=== PATIENT | female | born 1945 | race Caucasian/White ===

== ENCOUNTER 2016-09-21 07:38 | Observation (INO) | payer MEDICARE, BC ==
[~2016-09-21] VITALS: Ht 157.5 cm; Wt 97.9 kg
[~2016-09-21 07:38] MED LIST: ANTIVERT 25MG25 MG PO; ASPIRIN E.C. 8181 MG PO; CIPRO 500MG TA500 MG PO; CLARITIN 1010 MG/TAB PO; INDERAL80 MG PO; LIORESAL 1010 MG/TAB PO; MOBIC15 MG PO; NEURONTIN600 MG/TAB PO; NITROSTAT0.4 MG/TAB SL; NORCO 325 MG-101 TAB PO; OMEGA-3 FISH1200 MG PO; PLAVIX 75MG TAB75 MG PO; SOMA 350MG350 MG/TAB PO; UNABLE; ZANTAC 150150 MG; ZOCOR 40MG40 MG PO
[2016-09-21] MEDS ORDERED: INDERAL40 MG PO (08:07)
[2016-09-21] MEDS ORDERED: ZOCOR 80MG80 MG PO (08:08)
[2016-09-21 08:09] LABS: HEMATOCRIT 39.1 % (37.0-47.0); HEMOGLOBIN 12.2 g/dl (12.5-16.0); MEAN CELL VOLUME 92 fl (80.0-100.0); MEAN CORPUSCULAR HEMOGLOBIN 29 pg (27.0-31.0); MEAN CORPUSCULAR HGB CONC 31 g/dl (33.0-37.0); PLATELET COUNT 101 K/mm3 (130-400); RED BLOOD COUNT 4.26 M/mm3 (4.10-5.30); REDCELL DISTRIBUTION WIDTH-CV 14.3 % (11.5-14.5); WHITE BLOOD COUNT 9.5 K/mm3 (4.8-10.8)
[2016-09-21] MEDS ORDERED: NORCO 325 MG-101 TAB PO (08:09)
[2016-09-21 08:10] LABS: ADD PATHOLOGY DIFF REVIEW NO
[2016-09-21 08:26] LABS: ADJUSTED CALCIUM 9.4 mg/dL (8.4-10.2); ALANINE AMINOTRANSFERASE 19 U/L (9-52); ALBUMIN 3.9 gm/dL (3.5-5.0); ALKALINE PHOSPHATASE 65 U/L (50-136); ANION GAP 13 mmol/L (7-16); BILIRUBIN,TOTAL 0.8 mg/dL (0.0-1.0); BLOOD UREA NITROGEN 15 mg/dL (7-17); C-REACTIVE PROTEIN 0.7 mg/dL (0.0-0.9); CALCIUM 9.3 mg/dL (8.4-10.2); CARBON DIOXIDE 26 mmol/L (22-30); CHLORIDE 103 mmol/L (98-107); CREATININE, serum 0.79 mg/dL (0.52-1.25); GLUCOSE 121 mg/dL (74-106); POTASSIUM 3.9 mmol/L (3.4-5.0); SODIUM 142 mmol/L (137-145); TOTAL PROTEIN 6.9 gm/dL (6.4-8.2)
[2016-09-21 08:55] LABS: PH 5 (5-8); SQUAMOUS EPITHELIAL None Seen /hpf; URINE APPEARANCE Clear; URINE BACTERIA None Seen /hpf; URINE BILIRUBIN Negative (NEGATIVE); URINE BLOOD 1+ (NEGATIVE); URINE COLOR Yellow; URINE GLUCOSE Negative (NEGATIVE); URINE KETONE Negative (NEGATIVE); URINE RBC 0-2 /hpf; URINE UROBILINOGEN Negative (NEGATIVE); URINE WBC 0-2 /hpf
[2016-09-21 08:56] LABS: TROPONIN-I < 0.012 ng/mL (0.000-0.034)
[2016-09-21 09:21] LABS: EOSINOPHIL 10 % (0-4); NEUTROPHILS 10 % (42.0-75.2); TOTAL CELLS COUNTED 100
[2016-09-21 09:22] LABS: PLATELET ESTIMATE DECREASED (NORMAL)
[2016-09-21 09:38] VITALS: BP 171/85; PULSE 60
[2016-09-21 11:55] VITALS: BP 150/62; PULSE 60; TEMP 97.6
[2016-09-21 15:33] VITALS: BP 172/92; PULSE 72; TEMP 98.5
[2016-09-21 20:50] VITALS: BP 149/67; PULSE 65; TEMP 97.7
[2016-09-22 01:21] VITALS: BP 135/75; PULSE 66; TEMP 97.3
[2016-09-22 05:14] VITALS: BP 131/59; PULSE 59; TEMP 97.8
[2016-09-22 07:46] VITALS: BP 157/54; PULSE 59; TEMP 97.6
[2016-09-22 12:24] VITALS: BP 112/68; PULSE 55; TEMP 97.7
[2016-09-22 15:25] VITALS: BP 150/60; PULSE 70; TEMP 97.8
[2016-09-22 20:29] VITALS: BP 165/75; PULSE 67; TEMP 98.2
[2016-09-23 00:20] VITALS: BP 156/65; PULSE 63; TEMP 98
[2016-09-23 03:33] VITALS: BP 155/80; PULSE 91; TEMP 98.5
[2016-09-23 08:45] VITALS: BP 163/73; PULSE 63; TEMP 97.8
[2016-09-23 13:34] VITALS: BP 151/75; PULSE 66; TEMP 97.5
[2016-09-23] MEDS ORDERED: AMOXICILLIN 8751 TAB PO (13:45)
[2016-09-23] MEDS ORDERED: INDERAL40 MG PO (13:46)
[2016-09-23] MEDS ORDERED: VANCOCIN HCL1 GM IV (13:47)
[2016-09-25] MEDS ORDERED: INDERAL80 MG PO (07:04)
== END 2016-09-23 19:01 | disposition home or self-care (01) ==
LOC: COL.ER 07:38 → MEDICAL 09:57
PROVIDERS: Emergency Medicine
DX: R55 Syncope and collapse (principal); J32.9 Chronic sinusitis, unspecified; R54 Age-related physical debility; Z96.89 Presence of other specified functional implants; C92.10 Chronic myeloid leukemia, BCR/ABL-positive, not having achieved remission
CPT/HCPCS: G0378; G8978-GP; G8979-GP; G8980-GP; J1644; J2060; J2405; J3370; J7030; J7050

== ENCOUNTER 2016-10-15 08:00 | Outpatient (RCR) | payer MEDICARE, BC ==
[2016-08-29 15:00] VITALS: BP 118/68; PULSE 58; TEMP 96.6
[2016-08-29 15:01] LABS: CALCIUM 9.4 mg/dL (8.4-10.2); CREATININE, serum 0.76 mg/dL (0.52-1.25); POTASSIUM 4.2 mmol/L (3.4-5.0)
[2016-08-30 07:14] VITALS: BP 112/53; PULSE 56; TEMP 98.3
[2016-08-30 18:14] VITALS: BP 123/75; PULSE 60; TEMP 97.4
[2016-08-30 19:14] VITALS: BP 117/75; PULSE 63; TEMP 97.6
[2016-08-31 06:30] VITALS: BP 117/91; PULSE 58; TEMP 97.9
[2016-08-31 18:04] VITALS: BP 129/35; PULSE 61; TEMP 98.1
[2016-09-02 07:33] VITALS: BP 116/55; PULSE 52; TEMP 97.4
[2016-09-03 07:03] VITALS: BP 134/68; PULSE 53; TEMP 97.4
[2016-09-03 17:53] VITALS: BP 142/64; PULSE 55; TEMP 97.7
[2016-09-04 07:09] VITALS: BP 103/59; PULSE 56; TEMP 97.8
[2016-09-04 18:04] VITALS: BP 142/51; PULSE 60; TEMP 97.6
[2016-09-04 19:37] VITALS: BP 141/53; PULSE 54
[2016-09-05 07:07] VITALS: BP 124/60; PULSE 55; TEMP 97.5
[2016-09-06 06:58] VITALS: BP 140/67; PULSE 53; TEMP 97.9
[2016-09-06 17:56] VITALS: BP 142/54; PULSE 57; TEMP 97.6
[2016-09-07 07:37] VITALS: BP 132/56; PULSE 53; TEMP 97.9
[2016-09-07 17:59] VITALS: BP 144/56; PULSE 600; TEMP 97.8
[2016-09-08 06:57] VITALS: BP 142/62; PULSE 53; TEMP 97.5
[2016-09-09 07:14] VITALS: BP 113/51; PULSE 60; TEMP 97.8
[2016-09-10 07:19] VITALS: BP 134/73; PULSE 60; TEMP 97.9
[2016-09-10 18:24] VITALS: BP 143/65; PULSE 57; TEMP 98.1
[2016-09-11 07:48] VITALS: BP 141/59; PULSE 60; TEMP 97.3
[2016-09-11 18:18] VITALS: BP 141/58; PULSE 57; TEMP 97.8
[2016-09-12 07:00] VITALS: BP 129/59; PULSE 75; TEMP 97.2
[2016-09-12 07:04] VITALS: BP 129/59; PULSE 75; TEMP 97.2
[2016-09-13 06:52] VITALS: BP 136/58; PULSE 59; TEMP 97.8
[2016-09-13 18:00] VITALS: BP 123/55; PULSE 59; TEMP 97.4
[2016-09-14 06:53] VITALS: BP 141/62; PULSE 58; TEMP 97.4
[2016-09-14 18:43] VITALS: BP 149/60; PULSE 57; TEMP 98.5
[2016-09-15 08:29] VITALS: BP 128/57; PULSE 57; TEMP 97.5
[2016-09-16 08:11] VITALS: BP 137/55; PULSE 55; TEMP 97.3
[2016-09-17 06:54] VITALS: BP 118/56; PULSE 56; TEMP 97.4
[2016-09-17 17:58] VITALS: BP 109/95; PULSE 58; TEMP 97.5
[2016-09-18 06:51] VITALS: BP 116/101; PULSE 55; TEMP 97.5
[2016-09-18 17:57] VITALS: BP 130/74; PULSE 74; TEMP 97.4
[2016-09-19 07:35] VITALS: BP 118/55; PULSE 56; TEMP 97.6
[2016-09-20 06:48] VITALS: BP 127/60; PULSE 57; TEMP 97.9
[2016-09-20 19:07] VITALS: BP 127/60; PULSE 57; TEMP 98
[2016-09-24 06:48] VITALS: BP 150/58; PULSE 57; TEMP 97.6
[2016-09-25 07:07] VITALS: BP 126/54; PULSE 54; TEMP 97.7
[2016-09-25 18:23] VITALS: BP 126/63; PULSE 57; TEMP 98
[2016-09-26 07:11] VITALS: BP 134/61; PULSE 56; TEMP 98
[2016-09-26 18:02] VITALS: BP 174/84; PULSE 96; TEMP 97.2
[2016-09-27 07:03] VITALS: BP 130/52; PULSE 51; TEMP 97.4
[2016-09-27 17:58] VITALS: BP 137/67; PULSE 61; TEMP 98
[2016-09-28 07:06] VITALS: BP 109/78; PULSE 56; TEMP 97.2
[2016-09-29 07:09] VITALS: BP 154/62; PULSE 55; TEMP 98.4
[2016-09-30 06:56] VITALS: BP 144/55; PULSE 58; TEMP 97.2
[2016-10-01 06:59] VITALS: BP 116/54; PULSE 60; TEMP 97.3
[2016-10-01 18:01] VITALS: BP 156/58; PULSE 64; TEMP 97.7
[2016-10-02 07:06] VITALS: BP 110/51; PULSE 54; TEMP 97.5
[2016-10-03 07:00] VITALS: BP 119/64; PULSE 57; TEMP 97.1
[2016-10-04 07:16] VITALS: BP 114/61; PULSE 58; TEMP 97.4
[2016-10-04 17:47] VITALS: BP 132/59; PULSE 64; TEMP 97.2
[2016-10-05 07:06] VITALS: BP 128/53; PULSE 56; TEMP 97.2
[2016-10-07 07:26] VITALS: BP 118/70; PULSE 57; TEMP 97.6
[2016-10-08 07:07] VITALS: BP 136/55; PULSE 56; TEMP 98.2
[2016-10-08 17:56] VITALS: BP 144/68; PULSE 62; TEMP 97.3
[2016-10-09 07:11] VITALS: BP 133/63; PULSE 56; TEMP 97.7
[2016-10-09 18:16] VITALS: BP 136/56; PULSE 56; TEMP 98.1
[2016-10-10 07:33] VITALS: BP 134/70; PULSE 64; TEMP 97.2
[2016-10-11 07:49] VITALS: BP 134/56; PULSE 56; TEMP 98.4
[~2016-10-15] VITALS: Ht 152.4 cm; Wt 93.9 kg
[~2016-10-15 08:00] MED LIST changes: +AMOXICILLIN 8751 TAB PO; +INDERAL40 MG PO; +VANCOCIN HCL1 GM IV; +ZOCOR 80MG80 MG PO
[2016-10-15 08:53] VITALS: BP 117/50; PULSE 56; TEMP 97.2
== END 2016-10-15 09:12 | disposition home or self-care (01) ==
LOC: EUO 08:00
PROVIDERS: Anesthesiology Pain Medicine
DX: Z45.2 Encounter for adjustment and management of vascular access device (principal); Z79.2 Long term (current) use of antibiotics
CPT/HCPCS: C1751; J1644; J3370; J7040; J7050

== ENCOUNTER → 2017-01-02 | Outpatient (CLI) | payer MEDICARE, BC | LOC: MC.RAD 10:18 | DX: Z12.31 Encounter for screening mammogram for malignant neoplasm of breast (principal) ==

== ENCOUNTER 2017-04-05 20:46 | Emergency (ER) | payer MEDICARE, BC ==
[~2017-04-05] VITALS: Ht 152.4 cm; Wt 90.0 kg
[2017-04-05 20:53] VITALS: TEMP 96.9
[2017-04-05] MEDS ORDERED: CEPHALEXIN500 M1 PO (21:18)
[2017-04-05 21:34] VITALS: BP 144/75; PULSE 68
== END 2017-04-05 21:35 | disposition home or self-care (01) ==
LOC: COL.ER 20:46
DX: T81.31XA Disruption of external operation (surgical) wound, not elsewhere classified, initial encounter (principal); Z79.82 Long term (current) use of aspirin; Z85.6 Personal history of leukemia; Z96.89 Presence of other specified functional implants

== ENCOUNTER 2017-06-04 11:00 | Outpatient (RCR) | payer MEDICARE, BC ==
[2017-05-15 11:22] VITALS: BP 101/48; PULSE 56; TEMP 97.3
[2017-05-16 11:33] VITALS: BP 103/62; PULSE 58; TEMP 97.6
[2017-05-16 11:33] LABS: CREATININE, serum 0.87 mg/dL (0.52-1.25)
[2017-05-16 11:38] LABS: VANCOMYCIN TROUGH 12.94 ug/mL (7.00-20.00)
[2017-05-17 11:16] VITALS: BP 121/62; PULSE 55; TEMP 97.9
[2017-05-18 10:06] VITALS: BP 84/44; PULSE 60; TEMP 97.7
[2017-05-19 10:00] VITALS: BP 128/60; PULSE 57; TEMP 97.7
[2017-05-20 12:00] VITALS: BP 105/61; PULSE 55; TEMP 98
[2017-05-21 10:57] VITALS: BP 123/50; PULSE 57; TEMP 97.4
[2017-05-22 10:56] VITALS: BP 108/62; PULSE 55; TEMP 97.3
[2017-05-23 10:59] VITALS: BP 117/52; PULSE 55
[2017-05-24 11:26] VITALS: BP 116/63; PULSE 61; TEMP 97.6
[2017-05-25 09:59] VITALS: BP 128/62; PULSE 87
[2017-05-26 09:59] VITALS: BP 136/66; PULSE 56; TEMP 97.1
[2017-05-27 10:59] VITALS: BP 136/66; PULSE 55; TEMP 97.5
[2017-05-28 12:12] VITALS: BP 121/56; PULSE 50; TEMP 97.8
[2017-05-29 11:23] VITALS: BP 127/53; PULSE 53; TEMP 97.5
[2017-05-30 09:06] VITALS: BP 141/50; PULSE 56; TEMP 97.7
[2017-05-31 09:03] VITALS: BP 135/57; PULSE 53; TEMP 97.4
[2017-06-01 09:03] VITALS: BP 151/67; PULSE 57; TEMP 97.3
[2017-06-03 11:13] VITALS: BP 133/58; PULSE 88; TEMP 97.8
[~2017-06-04] VITALS: Ht 152.4 cm; Wt 92.0 kg
[2017-06-04 10:59] VITALS: BP 136/52; PULSE 54; TEMP 97.3
[~2017-06-04 11:00] MED LIST changes: +BACTRIM DS 8001 TAB PO; +CEPHALEXIN500 M1 PO; +ROXICODONE 55 MG/TAB PO; +VANCOMYCIN HYD750 MG IV
== END 2017-06-04 12:20 | disposition home or self-care (01) ==
LOC: EUO 11:00
PROVIDERS: Anesthesiology Pain Medicine
DX: T85.79XA Infection and inflammatory reaction due to other internal prosthetic devices, implants and grafts, initial encounter (principal); Z45.2 Encounter for adjustment and management of vascular access device; Z48.00 Encounter for change or removal of nonsurgical wound dressing
CPT/HCPCS: J1644; J3370; J7050

== ENCOUNTER → 2018-01-21 | Outpatient (CLI) | payer MEDICARE, BC | LOC: MC.RAD 08:52 | DX: Z12.31 Encounter for screening mammogram for malignant neoplasm of breast (principal) ==

== ENCOUNTER → 2019-02-03 | Outpatient (CLI) | payer MEDICARE, BC | LOC: MC.RAD 09:38 | DX: Z12.31 Encounter for screening mammogram for malignant neoplasm of breast (principal) ==

== ENCOUNTER → 2020-02-05 | Outpatient (CLI) | payer MEDICARE, BC | LOC: MC.RAD 09:55 | DX: Z12.31 Encounter for screening mammogram for malignant neoplasm of breast (principal) ==

== ENCOUNTER → 2021-02-09 | Outpatient (CLI) | payer MEDICARE, BC ==
[~2021-02-09] MED LIST changes: +FIORICET 325 MG1 TA1 PO; +MASON NATURAL1200 MG PO; +OMNICEF 300MG300 MG PO; +PEPCID 20MG TAB20 MG PO; +PERCOCET 325 MG1 TA2 PO; +ULTRAM 50MG TAB50 MG PO; +ZOFRAN ODT4 MG PO
== END ==
LOC: MC.RAD 10:16
DX: Z12.31 Encounter for screening mammogram for malignant neoplasm of breast (principal)

== ENCOUNTER 2021-05-14 11:59 | Emergency (ER) | payer MEDICARE, BC ==
[~2021-05-14] VITALS: Ht 152.4 cm; Wt 85.9 kg
[~2021-05-14 11:59] MED LIST changes: -FIORICET 325 MG1 TA1 PO; -MASON NATURAL1200 MG PO; -OMNICEF 300MG300 MG PO; -PEPCID 20MG TAB20 MG PO; -PERCOCET 325 MG1 TA2 PO; -ULTRAM 50MG TAB50 MG PO; -ZOFRAN ODT4 MG PO
[2021-05-14 12:23] VITALS: TEMP 98
[2021-05-14] MEDS ORDERED: FIORICET 325 MG1 TA1 PO (14:49)
[2021-05-14 15:13] VITALS: BP 153/79; PULSE 57
[2021-05-15] MEDS ORDERED: ULTRAM 50MG TAB50 MG PO (17:30)
[2021-05-15] MEDS ORDERED: PEPCID 20MG TAB20 MG PO (17:31)
[2021-05-15] MEDS ORDERED: MASON NATURAL1200 MG PO (17:33)
== END 2021-05-14 15:13 | disposition home or self-care (01) ==
LOC: COL.ER 11:59
DX: G43.909 Migraine, unspecified, not intractable, without status migrainosus (principal); I25.2 Old myocardial infarction; Z79.891 Long term (current) use of opiate analgesic
CPT/HCPCS: J0780; J1200

== ENCOUNTER 2021-05-15 14:08 | Observation (INO) | payer MEDICARE, BC ==
[~2021-05-15] VITALS: Ht 152.4 cm; Wt 85.5 kg
[~2021-05-15 14:08] MED LIST changes: +FIORICET 325 MG1 TA1 PO
[2021-05-15 14:45] LABS: HEMATOCRIT 43.2 % (37.0-47.0); HEMOGLOBIN 13.8 g/dl (12.5-16.0); MEAN CELL VOLUME 89 fl (80.0-100.0); MEAN CORPUSCULAR HEMOGLOBIN 29 pg (27.0-31.0); MEAN CORPUSCULAR HGB CONC 32 g/dl (33.0-37.0); PLATELET COUNT 171 K/mm3 (130-400); RED BLOOD COUNT 4.83 M/mm3 (4.10-5.30)
[2021-05-15 15:03] LABS: ALBUMIN 3.6 gm/dL (3.4-4.8); BILIRUBIN,TOTAL 0.6 mg/dL (0.2-1.2); CALCIUM 9.2 mg/dL (8.4-10.2); CREATININE, serum 1.05 mg/dL (0.57-1.11); POTASSIUM 3.1 mmol/L (3.5-4.5); TOTAL PROTEIN 6.9 gm/dL (6.2-8.1)
[2021-05-15 15:16] LABS: BAND 1 % (0-10); LYMPHOCYTE 85 % (20.0-51.0); NEUTROPHILS 13 % (42.0-75.2); PLATELET ESTIMATE NORMAL (NORMAL)
[2021-05-15 15:23] LABS: TROPONIN-I 0.018 ng/mL (0.00-0.033); TSH w REFLEX 0.515 uIU/mL (0.350-4.940)
[2021-05-15 15:34] LABS: MUCOUS Present /lpf; PH 6 (5-8); SQUAMOUS EPITHELIAL 0-2 /hpf; URINE APPEARANCE Hazy; URINE BACTERIA None Seen /hpf; URINE BILIRUBIN Negative (NEGATIVE); URINE BLOOD 1+ (NEGATIVE); URINE COLOR Yellow; URINE GLUCOSE Negative (NEGATIVE); URINE KETONE Negative (NEGATIVE); URINE LEUKOCYTE ESTERASE 2+ (NEGATIVE); URINE NITRATE Negative (NEGATIVE); URINE PROTEIN(semi-quant) 2+ (NEGATIVE); URINE UROBILINOGEN >=4.0 mg/dL (NEGATIVE)
[2021-05-15 15:46] LABS: COLLECTION METHOD CLEAN CATCH
[2021-05-15] MEDS ORDERED: ULTRAM 50MG TAB50 MG PO (17:30)
[2021-05-15] MEDS ORDERED: PEPCID 20MG TAB20 MG PO (17:31)
[2021-05-15] MEDS ORDERED: MASON NATURAL1200 MG PO (17:33)
--- NOTE | 2021-05-15 19:45 | NUR ---
Arrived to room 324 via wheelchair from ED. Oriented to room and policy. Admission assessment complete. VS stable. Plan of care discussed for this to include meds/calling for questions/concerns. Verbalizes understanding/denies needs. Call light in reach/bed alarm on. Will monitor.
[2021-05-15 20:18] VITALS: BP 137/89; PULSE 99; TEMP 98.5
[2021-05-15 23:21] VITALS: BP 139/79; PULSE 96; TEMP 98.4
[2021-05-16 03:38] VITALS: BP 128/74; PULSE 89; TEMP 97.7
--- NOTE | 2021-05-16 03:53 | NUR ---
Patient removed INT to right hand-cath intact. Restarted in right wrist-22g x1 attempt.
--- NOTE | 2021-05-16 05:56 | NUR ---
Less confused this morning. Assisted up to chair at this time. C/O back pain-rating pain 8/10 on pain scale-described as constant ache with intermittent sharpness. Tylenol/tramadol given per dr order. Call light in reach/chair alarm on. Will monitor.
[2021-05-16 06:46] LABS: HEMATOCRIT 45.1 % (37.0-47.0); HEMOGLOBIN 14.3 g/dl (12.5-16.0); MEAN CELL VOLUME 90 fl (80.0-100.0); MEAN CORPUSCULAR HEMOGLOBIN 29 pg (27.0-31.0); MEAN CORPUSCULAR HGB CONC 32 g/dl (33.0-37.0); MEAN PLATELET VOLUME 10.7 fl (7.4-10.4); PLATELET COUNT 191 K/mm3 (130-400); RED BLOOD COUNT 5.02 M/mm3 (4.10-5.30); REDCELL DISTRIBUTION WIDTH-CV 15.1 % (11.5-14.5)
[2021-05-16 07:05] LABS: CALCIUM 9.6 mg/dL (8.4-10.2); CHOLESTEROL RISK RATIO 3.7; CREATININE, serum 0.91 mg/dL (0.57-1.11); POTASSIUM 3.2 mmol/L (3.5-4.5)
[2021-05-16 07:58] LABS: PLATELET ESTIMATE NORMAL (NORMAL)
[2021-05-16 07:59] LABS: BAND 3 % (0-10); LYMPHOCYTE 81 % (20.0-51.0); NEUTROPHILS 15 % (42.0-75.2)
[2021-05-16 08:03] VITALS: BP 133/58; PULSE 72; TEMP 97.9
--- NOTE | 2021-05-16 08:38 | NUR ---
PT SITTING IN RECLINER EATING BREAKFAST. OT IN TO WORK WITH PT. PT IS ALERT AND MOSTLY ORIENTED. SOME INTERMITTANT CONFUSION WITH ADLS. PT PUTS FORK ON TRAY AND THEN FORGETS SHE HAS A FORK. PT WAS TRYING TO DRINK OATMEAL. REMINDED THAT SHE HAS A SPOON AND IT WOULD BE EASIER TO EAT WITH. PT THEN PICKED UP SPOON AND CONTINUED. PT SPILLED COFFEE. EYE HAND COORDINATION QUESTIONABLE. PT TOOK ALL AM MEDS AT ONCE NO SWALLOWING ISSUES NOTED. PT TO MRI AT THIS TIME.
--- NOTE | 2021-05-16 09:35 | NUR ---
BOBBY met with the patient to discuss discharge plan. The patient lives in [place] with her , Masood (ph#[phone]). She reports independence with ADLs and has a cane, walker, and wheelchair. The patient's PCP is Dr. Dinh Valentino and she receives her medications from [facility] She reports no difficulties obtaining her meds. The patient does not have a DPOA-HC in EMR, but she states that she does have one completed and that she designated her son, Billy (ph#[phone]). She states that [facility] should have a copy of the DPOA-HC. BOBBY contacted [facility] to request a copy. The receptionist clerk reports that she will leave a message for their social secretary to contact this SW back. The patient plans to return home with her upon discharge. SW disussed home health services and it's benefits. The patient reports that she is really considering home health, but would like to talk to her first about it. PT/OT have been ordered. BOBBY to continue to follow. *Discharge plan: home with . Awaiting therapy's recs*
[2021-05-16 11:08] VITALS: BP 130/82; PULSE 65; TEMP 97.6
--- NOTE | 2021-05-16 12:18 | NUR ---
First visit from the polls or surveys interviewer. No needs right now.
--- NOTE | 2021-05-16 14:02 | NUR ---
SW received the patient's DPOA-HC, via fax. SW placed the document in the patient's chart. The patient's DPOA-HC is her . The alternate is her son, Billy.
--- NOTE | 2021-05-16 15:13 | NUR ---
PT recommends home with family supervision and home health. BOBBY attempted to contact the patient's , Masood, to review discharge plan. His phone goes straight to voicemail. SW left him a voicemail. BOBBY also attempted to contact her son, Billy. SW left him a voicemail. BOBBY met with the patient to discussed therapy's recommendation. The patient reports that her is normally always with her. She is open to home health. BOBBY provided the patient with Medicare.[place]'s list of home health agencies that serve [place]. The patient chose [facility]. BOBBY contacted and faxed a referral to Audrey at [facility]. Audrey reports that they are able to accept the patient for services. *Discharge plan: home with and home health*
--- NOTE | 2021-05-16 15:19 | NUR ---
DR.POELL TILLEY NOTIFIED THIS AM OF WBC RESULT.
[2021-05-16 15:28] VITALS: BP 152/74; PULSE 72; TEMP 97
--- NOTE | 2021-05-16 16:08 | NUR ---
The patient's son, Billy, returned BOBBY's phone call. BOBBY provided him with an update. Billy confirms that the patient's is with the patient at all times. He is in agreement to the discharge plan of home with and [facility].
[2021-05-16 19:13] VITALS: BP 149/78; PULSE 78; TEMP 98.1
--- NOTE | 2021-05-16 20:10 | NUR ---
Report received, assumed care for night club manager. Assessment complete. Partially oriented-intermittent confusion and forgetfullness. Answers most questions appropriately-otherwise neuros WNL. Denies pain/nausea/shortness of breath. VS remain stable. Plan of care discussed for this shift to include meds/calling for questions/concerns. Verbalizes understanding. Call light in reach. WIll monitor.
--- NOTE | 2021-05-16 21:00 | NUR ---
Called with c/o pain to back-rating pain 10/10 on pain scale-described as constant ache with intermittent sharpness. Tramadol given per dr order.
[2021-05-16 22:07] VITALS: BP 152/94; PULSE 65; TEMP 98.3
--- NOTE | 2021-05-17 01:05 | NUR ---
Patient up out of bed setting off alarm. Very confused-th[place]. Re-oriented several times-can answer questions appropriately but gets confused again. SItting up in chair watching TV. Call light in reach/bed alarm on. Will monitor.
[2021-05-17 03:04] VITALS: BP 137/81; PULSE 80; TEMP 98.3
--- NOTE | 2021-05-17 06:24 | NUR ---
Rested better later this shift. Received tramadol/tylenol for back and head ache. Denied nausea/shortness of breath. VS remained stable. BP slightly elevated but below medications parameters. Still remains forgetful/confused but easy to reorient/follows commands. Denies current needs. Call light in reach/bed alarm on. Will monitor.
[2021-05-17 07:30] VITALS: BP 132/72; PULSE 79; TEMP 97.4
[2021-05-17 08:36] LABS: CALCIUM 9.8 mg/dL (8.4-10.2); CREATININE, serum 0.92 mg/dL (0.57-1.11); POTASSIUM 3.8 mmol/L (3.5-4.5)
[2021-05-17] MEDS ORDERED: OMNICEF 300MG300 MG PO (09:08)
--- NOTE | 2021-05-17 09:15 | NUR ---
BOBBY attended clinical rounds. The patient's son, Billy, at bedside. The patient is to discharge back home with her today, 05/17, with home health services for long-term/PT/OT from [facility]. BOBBY notified and faxed discharge orders to Audrey at [facility]. No additional needs at this time.
--- NOTE | 2021-05-17 10:22 | NUR ---
Patient sitting up in bed upon entering the room. Patient is A&O answering questions appropriately. Patient's is at the bedside. Patient will discharge home today.
[2021-05-17 11:10] VITALS: BP 158/79; PULSE 78; TEMP 97.5
--- NOTE | 2021-05-17 12:47 | NUR ---
Patient discharged. Escorted out by flyer maker. IV and tele discontinued. Education provided to patient's son via telephone.
[2021-05-18] MEDS ORDERED: ZOFRAN ODT4 MG PO (15:44)
[2021-05-18] MEDS ORDERED: PERCOCET 325 MG1 TA2 PO (15:44)
== END 2021-05-17 12:15 | disposition home health service (06) ==
LOC: COL.ER 14:08 → SURG 17:57
PROVIDERS: Emergency Medicine; Internal Medicine; Student in an Organized Health Care Education/Training Program; ADMIT Internal Medicine
DX: G45.9 Transient cerebral ischemic attack, unspecified (principal); R47.81 Slurred speech; R51.9 Headache, unspecified; N39.0 Urinary tract infection, site not specified; E87.6 Hypokalemia; E78.5 Hyperlipidemia, unspecified; I25.10 Atherosclerotic heart disease of native coronary artery without angina pectoris; I10 Essential (primary) hypertension; I25.2 Old myocardial infarction; C92.10 Chronic myeloid leukemia, BCR/ABL-positive, not having achieved remission; G93.41 Metabolic encephalopathy; W19.XXXA Unspecified fall, initial encounter; Z79.82 Long term (current) use of aspirin; Z79.899 Other long term (current) drug therapy; Z79.891 Long term (current) use of opiate analgesic; Z79.02 Long term (current) use of antithrombotics/antiplatelets; Z90.89 Acquired absence of other organs
CPT/HCPCS: G0378; J0696; J0780; J1200; J1650; J2765; Q9967

== ENCOUNTER 2021-05-18 12:41 | Emergency (ER) | payer MEDICARE, BC ==
[~2021-05-18] VITALS: Ht 152.4 cm; Wt 81.8 kg
[~2021-05-18 12:41] MED LIST changes: +MASON NATURAL1200 MG PO; +OMNICEF 300MG300 MG PO; +PEPCID 20MG TAB20 MG PO; +ULTRAM 50MG TAB50 MG PO
[2021-05-18 13:14] VITALS: BP 161/99; PULSE 78; TEMP 97
[2021-05-18 14:11] LABS: HEMOGLOBIN 15.4 g/dl (12.5-16.0); MEAN CELL VOLUME 91 fl (80.0-100.0); MEAN CORPUSCULAR HEMOGLOBIN 29 pg (27.0-31.0); MEAN CORPUSCULAR HGB CONC 31 g/dl (33.0-37.0); MEAN PLATELET VOLUME 10.2 fl (7.4-10.4); PLATELET COUNT 207 K/mm3 (130-400); RED BLOOD COUNT 5.38 M/mm3 (4.10-5.30); REDCELL DISTRIBUTION WIDTH-CV 15.4 % (11.5-14.5)
[2021-05-18 14:28] LABS: BILIRUBIN,TOTAL 0.5 mg/dL (0.2-1.2); CALCIUM 9.5 mg/dL (8.4-10.2); CREATININE, serum 1.1 mg/dL (0.57-1.11); POTASSIUM 3.6 mmol/L (3.5-4.5); TOTAL PROTEIN 7.4 gm/dL (6.2-8.1)
[2021-05-18 15:06] LABS: NEUTROPHILS 6 % (42.0-75.2)
[2021-05-18 15:24] LABS: LYMPHOCYTE 92 % (20.0-51.0)
[2021-05-18] MEDS ORDERED: PERCOCET 325 MG1 TA2 PO (15:44)
[2021-05-18] MEDS ORDERED: ZOFRAN ODT4 MG PO (15:44)
== END 2021-05-18 16:15 | disposition home or self-care (01) ==
LOC: COL.ER 12:41
PROVIDERS: Personal Emergency Response Attendant
DX: G43.909 Migraine, unspecified, not intractable, without status migrainosus (principal); I25.10 Atherosclerotic heart disease of native coronary artery without angina pectoris; E78.00 Pure hypercholesterolemia, unspecified; Z79.02 Long term (current) use of antithrombotics/antiplatelets; Z79.82 Long term (current) use of aspirin
CPT/HCPCS: J1885; J2270; J2405; J3030; J7030

== ENCOUNTER → 2021-05-25 | Outpatient (CLI) | payer MEDICARE, BC ==
[~2021-05-25] MED LIST changes: +PERCOCET 325 MG1 TA2 PO; +ZOFRAN ODT4 MG PO
[2021-05-25 09:51] LABS: CALCIUM 8.9 mg/dL (8.4-10.2); CREATININE, serum 1.07 mg/dL (0.57-1.11); MAGNESIUM 1.9 mg/dL (1.6-2.6); POTASSIUM 3.5 mmol/L (3.5-4.5)
== END ==
LOC: COL.LAB 08:37
DX: G45.9 Transient cerebral ischemic attack, unspecified (principal)